=== PATIENT | male | born 1975 | race Caucasian/White ===

== ENCOUNTER 2019-11-03 19:56 | Emergency (ER) | payer OTHER ==
[~2019-11-03] VITALS: Ht 175.3 cm; Wt 92.8 kg
--- NOTE | 2019-11-03 20:09 | NUR ---
PT TO [facility], WAIT TIME EXPLAINED. Addendum: 11/03/19 at 2340 by RIA Patient/Caregiver given discharge instructions and they have confirmed that they understand the instructions. Patient ambulatory with steady gait.
--- NOTE | 2019-11-03 20:25 | NUR ---
THIS IS A 43Y M THAT COMES IN W/ C/O EXHAUSTION. PT STS HE IS VERY TIRED AND HAS NOT BEEN SLEEPING OR EATING DUE TO BEING HOMELESS. PT DENIES MEDICAL COMPLAINTS OTHER THAN STATING HE IS VERY TIRED AND HUNGRY. PT CONNECTED TO MONITORING. LILLY WELSH. CALL LIGHT IN REACH
--- NOTE | 2019-11-03 22:05 | NUR ---
LAB AT BEDSIDE
--- NOTE | 2019-11-03 22:17 | NUR ---
PT REMAINS RESTING ON [facility]. S
[2019-11-03 22:24] LABS: ALANINE AMINOTRANSFERASE 44 U/L (12-78); ALBUMIN 2.3 g/dL (3.4-5.0); ANION GAP 7 mmol/L (5-15); CALCIUM 7.8 mg/dL (8.5-10.1); CHLORIDE 113 mmol/L (98-107)
[2019-11-03 22:29] LABS: ALKALINE PHOSPHATASE 68 U/L (45-117); BILIRUBIN,TOTAL 1.8 mg/dL (0.2-1.0); TOTAL PROTEIN 6.4 g/dL (6.4-8.2); TROPONIN I < 0.015 ng/mL (0.000-0.045)
[2019-11-03 22:42] LABS: MEAN CORPUSCULAR HEMOGLOBIN 30.4 pg (27.5-34.5); MEAN CORPUSCULAR HGB CONC 34.1 g/dL (33.2-36.2); MEAN CORPUSCULAR VOLUME 89.1 fL (81-97); MEAN PLATELET VOLUME 9.4 fL (7.4-10.4); RED BLOOD COUNT 4.08 x10^6/uL (4.38-5.82); RED CELL DISTRIBUTION WIDTH 17.8 % (9.4-14.8)
[2019-11-03 22:45] LABS: PLATELET COUNT 34 x10^3/uL (130-400)
[2019-11-03 22:48] LABS: FREE T4 (FREE THYROXINE) 1.04 ng/dL (0.76-1.46)
[2019-11-03 22:50] LABS: BASOS% (MANUAL) 3 % (0-1); EOS#(MANUAL) 0.64 x10^3/uL (0.0-0.4); EOS% (MANUAL) 20 % (1-7); LYMPH#(MANUAL) 0.67 x10^3/uL (1-3.4); LYMPHS% (MANUAL) 21 % (22-44); MD YES; MONOS#(MANUAL) 0.19 x10^3/uL (0.3-2.7); MONOS% (MANUAL) 6 % (2-9); REACTIVE LYMPHS # (MANUAL) 0.06 x10^3/uL (0-0); REACTIVE LYMPHS % (MANUAL) 2 % (0-0); SEG#(MANUAL) 1.54 x10^3/uL (1.8-6.8); SEGS% (MANUAL) 48 % (42-75)
[2019-11-03 22:51] LABS: ANISOCYTOSIS 1+; OVALOCYTES 1+; POLYCHROMASIA 1+
[2019-11-03 22:52] LABS: MICROCYTOSIS 1+
[2019-11-03 22:54] LABS: <PLATELET ESTIMATE> DECREASED
[2019-11-03 23:15] VITALS: BP 92/50
== END 2019-11-03 23:42 | disposition home or self-care (01) ==
LOC: ED 20:15
DX: B18.2 Chronic viral hepatitis C (principal); D69.3 Immune thrombocytopenic purpura; R53.1 Weakness
CPT/HCPCS: 36415; 80053; 83690; 84439; 84443; 84484; 85025; 93005; 99284

== ENCOUNTER 2019-11-11 12:16 | Inpatient (IN) | payer SELFPAY ==
[~2019-11-11] VITALS: Ht 175.3 cm; Wt 83.0 kg
[2019-11-11 13:02] LABS: ALBUMIN 2.6 g/dL (3.4-5.0); ANION GAP 6 mmol/L (5-15); CALCIUM 7.7 mg/dL (8.5-10.1); CHLORIDE 107 mmol/L (98-107); CREATININE 0.79 mg/dL (0.7-1.3)
[2019-11-11 13:13] LABS: MEAN CORPUSCULAR HEMOGLOBIN 30.1 pg (27.5-34.5); MEAN CORPUSCULAR HGB CONC 33.9 g/dL (33.2-36.2); MEAN CORPUSCULAR VOLUME 88.9 fL (81-97); PLATELET COUNT 68 x10^3/uL (130-400); RED BLOOD COUNT 4.46 x10^6/uL (4.38-5.82); RED CELL DISTRIBUTION WIDTH 17.3 % (9.4-14.8)
[2019-11-11] MEDS ORDERED: IBUPROFEN 200 MG TABLET PO ONE (13:30)
--- NOTE | 2019-11-11 13:30 | NUR ---
ASSUMED CARE OF PT AT THIS TIME FROM LOBBY VIA WHEELCHAIR, ABLE TO STAND AND TRANSFER SELF TO [facility]. 43 Y/O M PRESENTS STATING "I'M HOMELESS SO I SLEEP ANYWHERE I CAN, I THINK I GOT MY LEG CUT WHEN I WAS SLEEPING, FOR LAST 3 WEEKS BOTH MY LEGS ARE SWELLING REALLY BAD, THE RIGHT IS WORSE, I HAVE HEP C AND LIVER CIRRHOSIS SO MY STOMACH IS ALL SWOLLEN TOO, I TOOK 3-4 BABY ASPIRIN THIS MORNING TO HELP WITH THE PAIN, I JUST WANT ANTIBITICS, I THINK I'M SICK, I HAVE HEADACHE AND FEVERS FOR LAST WEEK. I'VE BEEN SMOKING POT TO HELP." ASSESSMENT COMPLETED. CONT PULSE OX, BP MONITORS APPLIED. VSS. CALL LIGHT IN REACH. FALL PRECAUTIONS IN PLACE. SIDE RAILS UPX2. DR. GARCIA AT BEDSIDE TO EVALUATE PT, AWAITING ORDERS. COOLING MEASURES IN PLACE FOR ELEVATED TEMP.
[2019-11-11 13:39] LABS: MD YES
[2019-11-11] MEDS ORDERED: IBUPROFEN 200 MG TABLET ONE (13:41)
[2019-11-11 13:43] LABS: BASOS#(MANUAL) 0.04 x10^3/uL (0-0.1); BASOS% (MANUAL) 1 % (0-1); EOS#(MANUAL) 0.17 x10^3/uL (0.0-0.4); EOS% (MANUAL) 4 % (1-7); LYMPH#(MANUAL) 0.25 x10^3/uL (1-3.4); LYMPHS% (MANUAL) 6 % (22-44); MONOS#(MANUAL) 0.34 x10^3/uL (0.3-2.7); MONOS% (MANUAL) 8 % (2-9); SEGS% (MANUAL) 81 % (42-75)
[2019-11-11 13:44] LABS: <PLATELET ESTIMATE> DECREASED; <PLT MORPHOLOGY> NORMAL PLT MORPH; ANISOCYTOSIS 1+; OVALOCYTES 1+; POLYCHROMASIA 1+
--- NOTE | 2019-11-11 13:50 | NUR ---
PT MEDICATED NOTED PER ORDER FOR ELEVATED TEMP, HOOVER AND LEG PAIN. PT REPORTS "I CAN'T TAKE TYLENOL BECAUSE OG MY CIRRHOSIS." RESTING COMFORTABLY. VSS. CALL LIGHT IN REACH. FALL PRECAUTIONS IN PLACE. US AT BEDSIDE
--- NOTE | 2019-11-11 14:08 | NUR ---
PT UP FOR RECHECK
--- NOTE | 2019-11-11 14:22 | NUR ---
PT RESTING COMFORTABLY, DOZING INTERMITTENTLY. DENIES NEED TO USE RESTROOM. REPORTS PAIN IMPROVING TO 8/10. VSS. AWAITING RECHECK. FALL PRECAUTIONS IN PLACE. SIDE RAILS UPX2.
--- NOTE | 2019-11-11 15:00 | NUR ---
BEDSIDE REPORT AND TRANSFER OF CARE TO [facility] AT THIS TIME.
--- NOTE | 2019-11-11 15:04 | NUR ---
ASSUMED CARE OF PATIENT. BEDSIDE REPORT DONE.
[2019-11-11] MEDS ORDERED: ACETAMINOPHEN 325 MG TABLET ONE (15:27)
--- NOTE | 2019-11-11 15:29 | NUR ---
SPOKE WITH DR GARCIA. WANTS TYLENOL GIVEN.
[2019-11-11] MEDS ORDERED: AMPICILLIN/SULBACTAM 3 GM in SODIUM CHLORIDE 0.9% 100 ML IV ONE (15:30)
[2019-11-11] MEDS ORDERED: VANCOMYCIN PER PHARMACY MC PRN ×2 (15:30→18:00)
[2019-11-11] MEDS ORDERED: ACETAMINOPHEN 325 MG TABLET PO ONE (15:30)
--- NOTE | 2019-11-11 15:55 | NUR ---
both blood cultlures drawn before abx given
[2019-11-11] MEDS ORDERED: VANCOMYCIN 1,900 MG in SODIUM CHLORIDE 0.9% 250 ML IV ONE (16:00)
--- NOTE | 2019-11-11 16:02 | NUR ---
HOSPITALIST IN ROOM
[2019-11-11] MEDS ORDERED: TRAZODONE 50MG TABLET PO PRN (16:30)
[2019-11-11] MEDS ORDERED: GUAIFENESIN/DM 200-20MG, 10ML UDC PO PRN (16:30)
[2019-11-11] MEDS ORDERED: hydrALAzine 20 MG/ML, 1ML IVPush PRN (16:30)
[2019-11-11] MEDS ORDERED: ONDANSETRON 2MG/ML, 2ML IVPush PRN (16:30)
[2019-11-11] MEDS ORDERED: ONDANSETRON ODT 4 MG PO PRN (16:30)
[2019-11-11] MEDS ORDERED: GABAPENTIN 300 MG CAPSULE PO PRN (16:30)
[2019-11-11] MEDS ORDERED: HYDROmorphone 2 MG/ML, 1ML IVPush PRN (16:30)
[2019-11-11] MEDS: NICOTINE 7 MG/24 HR PATCH.TD24 TD SCH (16:30)
[2019-11-11] MEDS ORDERED: LABETALOL 5MG/ML, 20ML IVPush PRN (16:30)
--- NOTE | 2019-11-11 17:02 | NUR ---
PT RESTING IN ROOM. NO ACUTE DISTRESS NOTED. CALL LIGHT IN PLACE. WILL CONTINUE TO MONITOR.
[2019-11-11] MEDS: ENOXAPARIN 40 MG/0.4 ML SQ SCH (18:06)
[2019-11-11 18:13] LABS: FREE T4 (FREE THYROXINE) 1.03 ng/dL (0.76-1.46)
[2019-11-11] MEDS ORDERED: PHARMACOKINETIC CONSULTATION MC ONE (18:30)
[2019-11-11] MEDS ORDERED: PHARMACOKINETIC MONITORING MC PRN (18:30)
[2019-11-11] MEDS ORDERED: OMNIPAQUE 350 MG/ML, 150 ML BOTTLE ONE (19:37)
[2019-11-11 19:55] VITALS: BP 118/73
[2019-11-11] MEDS ORDERED: FLU VACC QS2019-20 36MOS UP/PF 0.5 ML IM-VACC ONE (20:30)
[2019-11-12] MEDS: AMPICILLIN/SULBACTAM 3 GM in SODIUM CHLORIDE 0.9% 100 ML IV SCH ×4 (00:02→23:52)
[2019-11-12 00:07] VITALS: BP 160/88
[2019-11-12 03:35] LABS: CULTURE INDICATED? NO; MICROSCOPIC AUTO
[2019-11-12] MEDS: IBUPROFEN 600 MG TABLET PO PRN ×2 (04:10→16:10)
[2019-11-12] MEDS: VANCOMYCIN 1,500 MG in SODIUM CHLORIDE 0.9% 250 ML IV SCH ×2 (05:23→18:15)
[2019-11-12 05:44] LABS: MEAN CORPUSCULAR HEMOGLOBIN 30.2 pg (27.5-34.5); MEAN CORPUSCULAR HGB CONC 34.1 g/dL (33.2-36.2); MEAN CORPUSCULAR VOLUME 88.4 fL (81-97); RED BLOOD COUNT 4.18 x10^6/uL (4.38-5.82); RED CELL DISTRIBUTION WIDTH 17.5 % (9.4-14.8)
[2019-11-12 06:56] LABS: BASOPHILS # (AUTO) 0.01 x10^3/uL (0-0.1); BASOPHILS % (AUTO) 1 % (0-1); EOSINOPHILS # (AUTO) 0.09 x10^3/uL (0-0.4); EOSINOPHILS % (AUTO) 3 % (1-7); LYMPHOCYTES # (AUTO) 0.18 x10^3/uL (1-3.4); LYMPHOCYTES % (AUTO) 6 % (22-44); MD SCAN; MONOCYTES # (AUTO) 0.44 x10^3/uL (0.2-0.8); MONOCYTES % (AUTO) 15 % (2-9); NEUTROPHILS # (AUTO) 2.16 x10^3/uL (1.8-6.8); NEUTROPHILS % (AUTO) 75 % (42-75); PLATELET COUNT 64 x10^3/uL (130-400)
[2019-11-12 07:51] VITALS: BP 132/78
[2019-11-12 12:16] VITALS: BP 118/74
[2019-11-12 16:09] VITALS: BP 146/74
[2019-11-12] MEDS: NICOTINE 7 MG/24 HR PATCH.TD24 TD SCH (16:12)
[2019-11-12] MEDS: ENOXAPARIN 40 MG/0.4 ML SQ SCH (18:14)
[2019-11-12 19:25] VITALS: BP 124/74
[2019-11-13 02:13] VITALS: BP 123/81
[2019-11-13] MEDS: VANCOMYCIN 1,500 MG in SODIUM CHLORIDE 0.9% 250 ML IV SCH (05:38)
[2019-11-13 06:46] VITALS: BP 119/74
[2019-11-13] MEDS: AMPICILLIN/SULBACTAM 3 GM in SODIUM CHLORIDE 0.9% 100 ML IV SCH ×3 (07:45→23:59)
[2019-11-13 08:54] LABS: ANION GAP 6 mmol/L (5-15); CALCIUM 7.4 mg/dL (8.5-10.1); CHLORIDE 110 mmol/L (98-107); CREATININE 0.65 mg/dL (0.7-1.3)
[2019-11-13 08:58] LABS: MEAN CORPUSCULAR HEMOGLOBIN 30.3 pg (27.5-34.5); MEAN CORPUSCULAR HGB CONC 33.9 g/dL (33.2-36.2); MEAN CORPUSCULAR VOLUME 89.5 fL (81-97); MEAN PLATELET VOLUME 7.8 fL (7.4-10.4); PLATELET COUNT 50 x10^3/uL (130-400); RED BLOOD COUNT 4.46 x10^6/uL (4.38-5.82); RED CELL DISTRIBUTION WIDTH 17.4 % (9.4-14.8)
[2019-11-13 09:45] LABS: BASOPHILS # (AUTO) 0.01 x10^3/uL (0-0.1); BASOPHILS % (AUTO) 1 % (0-1); EOSINOPHILS # (AUTO) 0.28 x10^3/uL (0-0.4); EOSINOPHILS % (AUTO) 10 % (1-7); LYMPHOCYTES # (AUTO) 0.43 x10^3/uL (1-3.4); LYMPHOCYTES % (AUTO) 16 % (22-44); MD SCAN; MONOCYTES # (AUTO) 0.36 x10^3/uL (0.2-0.8); MONOCYTES % (AUTO) 13 % (2-9); NEUTROPHILS # (AUTO) 1.62 x10^3/uL (1.8-6.8); NEUTROPHILS % (AUTO) 60 % (42-75)
[2019-11-13] MEDS ORDERED: IBUPROFEN 600 MG TABLET PO PRN (10:30)
[2019-11-13 13:55] VITALS: BP 138/88
[2019-11-13] MEDS: ACETAMINOPHEN 325 MG TABLET PO PRN (14:09)
[2019-11-13] MEDS: ENOXAPARIN 40 MG/0.4 ML SQ SCH (16:04)
[2019-11-13] MEDS: NICOTINE 7 MG/24 HR PATCH.TD24 TD SCH (16:04)
[2019-11-13 16:28] LABS: INTERNATIONAL NORMALIZED RATIO 1.32 (0.93-1.1)
[2019-11-13 19:10] VITALS: BP 126/74
[2019-11-14 00:32] VITALS: BP 106/67
[2019-11-14 05:02] LABS: MEAN CORPUSCULAR HEMOGLOBIN 30.4 pg (27.5-34.5); MEAN CORPUSCULAR HGB CONC 34.3 g/dL (33.2-36.2); MEAN CORPUSCULAR VOLUME 88.8 fL (81-97); RED BLOOD COUNT 4.04 x10^6/uL (4.38-5.82); RED CELL DISTRIBUTION WIDTH 17.3 % (9.4-14.8)
[2019-11-14 05:10] LABS: ANION GAP 6 mmol/L (5-15); CALCIUM 7.1 mg/dL (8.5-10.1); CHLORIDE 110 mmol/L (98-107); CREATININE 0.63 mg/dL (0.7-1.3)
[2019-11-14 05:20] LABS: BASOPHILS # (AUTO) 0.04 x10^3/uL (0-0.1); BASOPHILS % (AUTO) 2 % (0-1); EOSINOPHILS # (AUTO) 0.24 x10^3/uL (0-0.4); EOSINOPHILS % (AUTO) 12 % (1-7); LYMPHOCYTES # (AUTO) 0.47 x10^3/uL (1-3.4); LYMPHOCYTES % (AUTO) 23 % (22-44); MD SCAN; MONOCYTES # (AUTO) 0.28 x10^3/uL (0.2-0.8); MONOCYTES % (AUTO) 13 % (2-9); NEUTROPHILS # (AUTO) 1.05 x10^3/uL (1.8-6.8); NEUTROPHILS % (AUTO) 51 % (42-75)
[2019-11-14 05:25] LABS: PLATELET COUNT 45 x10^3/uL (130-400)
[2019-11-14 07:05] VITALS: BP 130/87
[2019-11-14 08:12] LABS: % IRON SATURATION 20 % (20-55); IRON LEVEL 35 mcg/dL (65-175); TOTAL IRON BINDING CAPACITY 173 mcg/dL (250-450)
[2019-11-14] MEDS: CARVEDILOL 3.125 MG TABLET PO SCH ×2 (08:23→17:06)
[2019-11-14] MEDS: AMPICILLIN/SULBACTAM 3 GM in SODIUM CHLORIDE 0.9% 100 ML IV SCH ×3 (08:23→23:58)
[2019-11-14] MEDS: FUROSEMIDE 20 MG TABLET PO SCH (11:37)
[2019-11-14] MEDS: SPIRONOLACTONE 25 MG TABLET PO SCH (11:38)
[2019-11-14 11:40] VITALS: BP 126/79
[2019-11-14 14:01] VITALS: BP 156/99
[2019-11-14] MEDS: NICOTINE 7 MG/24 HR PATCH.TD24 TD SCH (14:17)
[2019-11-14] MEDS: ACETAMINOPHEN 325 MG TABLET PO PRN ×2 (14:39→20:26)
[2019-11-14 17:04] VITALS: BP 128/81
[2019-11-14] MEDS: ENOXAPARIN 40 MG/0.4 ML SQ SCH (17:06)
[2019-11-14] MEDS ORDERED: VANCOMYCIN PER PHARMACY MC PRN (17:30)
[2019-11-14] MEDS ORDERED: PHARMACOKINETIC MONITORING MC PRN (18:30)
[2019-11-14] MEDS ORDERED: PHARMACOKINETIC CONSULTATION MC ONE (18:30)
[2019-11-14 19:37] VITALS: BP 113/72
[2019-11-14] MEDS: VANCOMYCIN 2,000 MG in SODIUM CHLORIDE 0.9% 500 ML IV SCH (19:38)
[2019-11-14] MEDS: CALCIUM/VITAMIN D3 250-125 TABLET PO SCH (19:38)
[2019-11-15] MEDS: ZOLPIDEM 5MG TABLET PO PRN ×2 (00:09→22:04)
[2019-11-15 01:11] VITALS: BP 120/81
[2019-11-15 05:38] LABS: MEAN CORPUSCULAR HEMOGLOBIN 30.1 pg (27.5-34.5); MEAN CORPUSCULAR VOLUME 88.7 fL (81-97); PLATELET COUNT 52 x10^3/uL (130-400); RED BLOOD COUNT 4.08 x10^6/uL (4.38-5.82)
[2019-11-15 06:09] LABS: BASOPHILS # (AUTO) 0.03 x10^3/uL (0-0.1); BASOPHILS % (AUTO) 1 % (0-1); EOSINOPHILS # (AUTO) 0.32 x10^3/uL (0-0.4); EOSINOPHILS % (AUTO) 8 % (1-7); LYMPHOCYTES # (AUTO) 0.69 x10^3/uL (1-3.4); LYMPHOCYTES % (AUTO) 18 % (22-44); MD SCAN; MONOCYTES # (AUTO) 0.52 x10^3/uL (0.2-0.8); MONOCYTES % (AUTO) 14 % (2-9); NEUTROPHILS # (AUTO) 2.27 x10^3/uL (1.8-6.8); NEUTROPHILS % (AUTO) 59 % (42-75)
[2019-11-15] MEDS: CARVEDILOL 3.125 MG TABLET PO SCH ×2 (06:15→18:15)
[2019-11-15 06:48] VITALS: BP 129/80
[2019-11-15] MEDS: CALCIUM/VITAMIN D3 250-125 TABLET PO SCH ×2 (07:42→19:39)
[2019-11-15] MEDS: SPIRONOLACTONE 25 MG TABLET PO SCH (07:42)
[2019-11-15] MEDS: VANCOMYCIN 2,000 MG in SODIUM CHLORIDE 0.9% 500 ML IV SCH ×2 (07:42→19:39)
[2019-11-15] MEDS: FUROSEMIDE 20 MG TABLET PO SCH (07:42)
[2019-11-15] MEDS: AMPICILLIN/SULBACTAM 3 GM in SODIUM CHLORIDE 0.9% 100 ML IV SCH ×2 (09:20→18:14)
[2019-11-15 12:38] VITALS: BP 113/76
[2019-11-15] MEDS: ENOXAPARIN 40 MG/0.4 ML SQ SCH (18:14)
[2019-11-15 19:24] VITALS: BP 112/68
[2019-11-16 01:47] VITALS: BP 120/79
[2019-11-16] MEDS: AMPICILLIN/SULBACTAM 3 GM in SODIUM CHLORIDE 0.9% 100 ML IV SCH ×2 (01:57→10:56)
[2019-11-16 05:52] VITALS: BP 120/68
[2019-11-16] MEDS: CARVEDILOL 3.125 MG TABLET PO SCH ×2 (05:53→17:16)
[2019-11-16 06:40] VITALS: BP 107/70
[2019-11-16] MEDS ORDERED: BISACODYL 10 MG SUPP PR SCH (07:30)
[2019-11-16] MEDS ORDERED: MAGNESIUM CITRATE 300ML ORAL SOL PO ONE (07:30)
[2019-11-16] MEDS: VANCOMYCIN 2,000 MG in SODIUM CHLORIDE 0.9% 500 ML IV SCH (08:45)
[2019-11-16] MEDS: CALCIUM/VITAMIN D3 250-125 TABLET PO SCH ×2 (08:45→20:13)
[2019-11-16] MEDS: FUROSEMIDE 20 MG TABLET PO SCH (08:45)
[2019-11-16] MEDS: SPIRONOLACTONE 25 MG TABLET PO SCH (08:45)
[2019-11-16] MEDS: CEFTRIAXONE PMX 2GM/50ML 50 ML IV SCH (14:13)
[2019-11-16 15:00] VITALS: BP 114/79
[2019-11-16] MEDS ORDERED: VANCOMYCIN 1,700 MG in SODIUM CHLORIDE 0.9% 250 ML IV SCH (17:00)
[2019-11-16] MEDS: ENOXAPARIN 40 MG/0.4 ML SQ SCH (17:16)
[2019-11-16 19:42] VITALS: BP 119/75
[2019-11-16] MEDS: SULFAMETH./TRIMETHOPRIM DS 800MG/160MG TABLET PO SCH (20:12)
[2019-11-16] MEDS: SENNA/DOCUSATE TABLET PO SCH ×2 (20:13→21:00)
[2019-11-16] MEDS: ZOLPIDEM 5MG TABLET PO PRN (23:42)
[2019-11-17 00:21] VITALS: BP 111/76
[2019-11-17] MEDS: CARVEDILOL 3.125 MG TABLET PO SCH ×2 (05:24→17:07)
[2019-11-17 06:48] LABS: ANION GAP 6 mmol/L (5-15); CALCIUM 7.6 mg/dL (8.5-10.1); CHLORIDE 110 mmol/L (98-107); CREATININE 0.58 mg/dL (0.7-1.3)
[2019-11-17 07:05] VITALS: BP 123/84
[2019-11-17 08:28] LABS: CLOSTRIDIUM DIFFICILE ANTIGEN NEGATIVE; CLOSTRIDIUM DIFFICILE TOXIN NEGATIVE (Negative)
[2019-11-17] MEDS: SPIRONOLACTONE 25 MG TABLET PO SCH (08:56)
[2019-11-17] MEDS: SULFAMETH./TRIMETHOPRIM DS 800MG/160MG TABLET PO SCH ×2 (08:56→20:53)
[2019-11-17] MEDS: FUROSEMIDE 20 MG TABLET PO SCH (08:56)
[2019-11-17] MEDS: CALCIUM/VITAMIN D3 250-125 TABLET PO SCH ×2 (08:56→20:53)
[2019-11-17] MEDS: CEFTRIAXONE PMX 2GM/50ML 50 ML IV SCH (13:00)
[2019-11-17 13:14] VITALS: BP 103/63
[2019-11-17] MEDS: ENOXAPARIN 40 MG/0.4 ML SQ SCH (17:07)
[2019-11-17 19:29] VITALS: BP 109/74
[2019-11-17] MEDS: SENNA/DOCUSATE TABLET PO SCH (20:53)
[2019-11-17] MEDS: ZOLPIDEM 5MG TABLET PO PRN (22:43)
[2019-11-18 00:06] VITALS: BP 103/68
[2019-11-18 05:28] VITALS: BP 122/78
[2019-11-18] MEDS: CARVEDILOL 3.125 MG TABLET PO SCH ×2 (05:29→20:29)
[2019-11-18 07:37] VITALS: BP 118/76
[2019-11-18] MEDS: CALCIUM/VITAMIN D3 250-125 TABLET PO SCH ×2 (08:55→20:29)
[2019-11-18] MEDS: SPIRONOLACTONE 25 MG TABLET PO SCH (08:55)
[2019-11-18] MEDS: FUROSEMIDE 20 MG TABLET PO SCH (08:55)
[2019-11-18] MEDS: SULFAMETH./TRIMETHOPRIM DS 800MG/160MG TABLET PO SCH ×2 (08:55→20:29)
[2019-11-18] MEDS: CEFTRIAXONE PMX 2GM/50ML 50 ML IV SCH (12:51)
[2019-11-18] MEDS ORDERED: SENNA/DOCUSATE TABLET PO PRN (13:00)
[2019-11-18 13:07] VITALS: BP 107/68
[2019-11-18 18:46] VITALS: BP 124/76
[2019-11-18] MEDS: ENOXAPARIN 40 MG/0.4 ML SQ SCH (20:36)
[2019-11-18] MEDS: ZOLPIDEM 5MG TABLET PO PRN (22:52)
[2019-11-19 01:36] VITALS: BP 109/70
[2019-11-19 05:39] VITALS: BP 105/64
[2019-11-19] MEDS: CARVEDILOL 3.125 MG TABLET PO SCH ×2 (05:41→17:09)
[2019-11-19 07:11] VITALS: BP 102/62
[2019-11-19] MEDS: SULFAMETH./TRIMETHOPRIM DS 800MG/160MG TABLET PO SCH ×2 (09:14→20:43)
[2019-11-19] MEDS: SPIRONOLACTONE 25 MG TABLET PO SCH (09:14)
[2019-11-19] MEDS: FUROSEMIDE 20 MG TABLET PO SCH (09:14)
[2019-11-19] MEDS: CALCIUM/VITAMIN D3 250-125 TABLET PO SCH ×2 (09:14→20:43)
[2019-11-19] MEDS: CEFTRIAXONE PMX 2GM/50ML 50 ML IV SCH (13:02)
[2019-11-19 13:18] VITALS: BP 114/72
[2019-11-19 19:43] VITALS: BP 113/69
[2019-11-19] MEDS: ZOLPIDEM 5MG TABLET PO PRN (20:43)
[2019-11-19] MEDS: ENOXAPARIN 40 MG/0.4 ML SQ SCH (20:43)
[2019-11-20 02:58] VITALS: BP 104/64
[2019-11-20] MEDS: CARVEDILOL 3.125 MG TABLET PO SCH ×2 (06:05→17:17)
[2019-11-20 06:49] VITALS: BP 107/70
[2019-11-20 08:19] VITALS: BP 102/71
[2019-11-20] MEDS: CALCIUM/VITAMIN D3 250-125 TABLET PO SCH ×2 (09:02→20:14)
[2019-11-20] MEDS: SULFAMETH./TRIMETHOPRIM DS 800MG/160MG TABLET PO SCH ×2 (09:03→20:14)
[2019-11-20] MEDS: FUROSEMIDE 20 MG TABLET PO SCH (09:03)
[2019-11-20] MEDS: SPIRONOLACTONE 25 MG TABLET PO SCH (09:04)
[2019-11-20 12:44] VITALS: BP 114/72
[2019-11-20] MEDS: CEFTRIAXONE PMX 2GM/50ML 50 ML IV SCH (13:26)
[2019-11-20 19:55] VITALS: BP 103/69
[2019-11-20] MEDS: ZOLPIDEM 5MG TABLET PO PRN (20:15)
[2019-11-20] MEDS: ENOXAPARIN 40 MG/0.4 ML SQ SCH (20:15)
[2019-11-21 01:42] VITALS: BP 107/77
[2019-11-21] MEDS: CARVEDILOL 3.125 MG TABLET PO SCH ×2 (05:47→18:31)
[2019-11-21 07:55] VITALS: BP 104/68
[2019-11-21] MEDS: CALCIUM/VITAMIN D3 250-125 TABLET PO SCH ×2 (08:57→20:36)
[2019-11-21] MEDS: SPIRONOLACTONE 25 MG TABLET PO SCH (08:59)
[2019-11-21] MEDS: FUROSEMIDE 20 MG TABLET PO SCH (09:00)
[2019-11-21] MEDS: SULFAMETH./TRIMETHOPRIM DS 800MG/160MG TABLET PO SCH ×2 (09:01→20:36)
[2019-11-21] MEDS ORDERED: LOPERAMIDE 2 MG CAPSULE PO PRN (09:30)
[2019-11-21] MEDS: HEMORRHOIDAL SUPP.RECT PR SCH ×2 (09:33→21:18)
[2019-11-21] MEDS: CEFTRIAXONE PMX 2GM/50ML 50 ML IV SCH (12:10)
[2019-11-21 13:31] VITALS: BP 105/63
[2019-11-21 19:44] VITALS: BP 100/61
[2019-11-21] MEDS: ZOLPIDEM 5MG TABLET PO PRN (20:36)
[2019-11-21] MEDS: ENOXAPARIN 40 MG/0.4 ML SQ SCH (20:37)
[2019-11-22 02:52] VITALS: BP 102/66
[2019-11-22] MEDS: CARVEDILOL 3.125 MG TABLET PO SCH ×2 (05:22→18:33)
[2019-11-22 07:30] VITALS: BP 102/64
[2019-11-22] MEDS: HEMORRHOIDAL SUPP.RECT PR SCH (08:55)
[2019-11-22] MEDS: SPIRONOLACTONE 25 MG TABLET PO SCH (08:57)
[2019-11-22] MEDS: CALCIUM/VITAMIN D3 250-125 TABLET PO SCH ×2 (08:57→19:45)
[2019-11-22] MEDS: FUROSEMIDE 20 MG TABLET PO SCH (08:57)
[2019-11-22] MEDS: SULFAMETH./TRIMETHOPRIM DS 800MG/160MG TABLET PO SCH ×2 (08:57→19:46)
[2019-11-22] MEDS: HYDROCORTISONE 25 MG SUPP PR SCH ×2 (12:21→21:00)
[2019-11-22] MEDS: CEFTRIAXONE PMX 2GM/50ML 50 ML IV SCH (13:01)
[2019-11-22 13:41] VITALS: BP 110/72
[2019-11-22] MEDS: ENOXAPARIN 40 MG/0.4 ML SQ SCH (19:45)
[2019-11-22] MEDS: ZOLPIDEM 5MG TABLET PO PRN (19:46)
[2019-11-22 20:46] VITALS: BP 101/64
[2019-11-23 03:00] VITALS: BP 113/72
[2019-11-23] MEDS: CARVEDILOL 3.125 MG TABLET PO SCH ×2 (06:00→17:15)
[2019-11-23 07:17] VITALS: BP 104/69
[2019-11-23] MEDS: CALCIUM/VITAMIN D3 250-125 TABLET PO SCH ×2 (09:21→21:03)
[2019-11-23] MEDS: SULFAMETH./TRIMETHOPRIM DS 800MG/160MG TABLET PO SCH ×2 (09:21→21:03)
[2019-11-23] MEDS: HYDROCORTISONE 25 MG SUPP PR SCH ×2 (09:21→21:03)
[2019-11-23] MEDS: FUROSEMIDE 20 MG TABLET PO SCH (09:21)
[2019-11-23] MEDS: SPIRONOLACTONE 25 MG TABLET PO SCH (09:21)
[2019-11-23 12:32] VITALS: BP 107/67
[2019-11-23] MEDS: CEFTRIAXONE PMX 2GM/50ML 50 ML IV SCH (12:34)
[2019-11-23 20:21] VITALS: BP 122/76
[2019-11-23] MEDS: ENOXAPARIN 40 MG/0.4 ML SQ SCH (21:03)
[2019-11-23] MEDS: ZOLPIDEM 5MG TABLET PO PRN (21:08)
[2019-11-24 00:29] VITALS: BP 110/71
[2019-11-24] MEDS: CARVEDILOL 3.125 MG TABLET PO SCH (05:09)
[2019-11-24 06:04] LABS: ANION GAP 6 mmol/L (5-15); CALCIUM 7.8 mg/dL (8.5-10.1); CHLORIDE 110 mmol/L (98-107); CREATININE 0.76 mg/dL (0.7-1.3)
[2019-11-24] MEDS ORDERED: HYDROCORTISONE 25 MG SUPP PR PRN (07:30)
[2019-11-24 08:48] VITALS: BP 100/68
[2019-11-24] MEDS: FUROSEMIDE 20 MG TABLET PO SCH (08:49)
[2019-11-24] MEDS: SPIRONOLACTONE 25 MG TABLET PO SCH (08:49)
[2019-11-24] MEDS: CALCIUM/VITAMIN D3 250-125 TABLET PO SCH (08:49)
[2019-11-24] MEDS: SULFAMETH./TRIMETHOPRIM DS 800MG/160MG TABLET PO SCH (08:50)
[2019-11-24] MEDS ORDERED: CEFTRIAXONE PMX 2GM/50ML 50 ML IV SCH (09:00)
[2019-11-24] MEDS ORDERED: CALC1TAB68 PO (09:08)
[2019-11-24] MEDS ORDERED: SPIR25TA PO (09:08)
[2019-11-24] MEDS ORDERED: FURO20TA3 PO (09:08)
[2019-11-24] MEDS ORDERED: HYDR25SU3 PR (09:08)
[2019-11-24] MEDS ORDERED: CARV3.1212 PO (09:08)
== END 2019-11-24 13:35 | disposition home or self-care (01) | DRG 872 ==
LOC: ED 14:19 → EDIP 15:29 → 3N 17:48
PROVIDERS: ADMIT Internal Medicine Infectious Disease; ATTEND Internal Medicine
PROC: 02HV33Z Insertion of Infusion Device into Superior Vena Cava, Percutaneous Approach (ICD-10-PCS; principal; 2019-11-17)
PROC: B5181ZA Fluoroscopy of Superior Vena Cava using Low Osmolar Contrast, Guidance (ICD-10-PCS; 2019-11-17)
PROC: B548ZZA Ultrasonography of Superior Vena Cava, Guidance (ICD-10-PCS; 2019-11-17)
DX: A41.9 Sepsis, unspecified organism (principal); D61.818 Other pancytopenia; E44.1 Mild protein-calorie malnutrition; E87.1 Hypo-osmolality and hyponatremia; L03.115 Cellulitis of right lower limb; R18.8 Other ascites; B19.20 Unspecified viral hepatitis C without hepatic coma; E03.9 Hypothyroidism, unspecified; Z68.27 Body mass index [BMI] 27.0-27.9, adult; E66.9 Obesity, unspecified; E83.42 Hypomagnesemia; E83.51 Hypocalcemia; F12.10 Cannabis abuse, uncomplicated; F17.210 Nicotine dependence, cigarettes, uncomplicated; G47.00 Insomnia, unspecified; I10 Essential (primary) hypertension; K59.00 Constipation, unspecified; K64.4 Residual hemorrhoidal skin tags; K74.60 Unspecified cirrhosis of liver; Z59.0 Homelessness; Z88.8 Allergy status to other drugs, medicaments and biological substances
CPT/HCPCS: 36415; 36573; 71046; 76700; 80048; 80202; 81001; 82040; 82330; 82565; 83540; 83550; 83605; 83735; 84439; 84443; 84481; 84520; 85025; 85610; 87040; 87070; 87077; 87147; 87181; 87186; 87205; 87324; 90686; 99285; G0378; J0295; J0696; J1650; J3370; Q9967; C1751; J7040; J7050

== ENCOUNTER 2020-09-03 02:27 | Emergency (ER) | payer MEDICAID ==
[~2020-09-03] VITALS: Ht 175.3 cm; Wt 78.0 kg
[~2020-09-03 02:27] MED LIST: CALC1TAB68 PO; CARV3.1212 PO; FURO20TA3 PO; HYDR25SU3 PR; LACT20SO13 PO; PANT40TA6 PO; PROP10TA16 PO; RIFA550T4 PO; SPIR25TA PO; SPIR50TA PO
--- NOTE | 2020-09-03 02:39 | NUR ---
PT BIB EMS FROM [facility] FOR GENERALIZED PAIN "ALL OVER", CHEST PAIN, AND HOOVER X 2 DAYS. PT ALTERED AND AAO X2. PT DENIES ETOH OR DRUG USE OTHER THAN MARIJUANA. HEAVEN ALVARADO, AT FOR PT HISTORY AND ASSESSMENT. PT ATTACHED TO VS AND CARDIAC MONITORS. VSS AT THIS TIME. PT EDUCATED ON ER PROCESS AND POC AND UNABLE TO VERBALIZES UNDERSTANDING. PT HAS CALL LIGHT WITHIN REACH. AWAITING ORDERS AT THIS TIME.
--- NOTE | 2020-09-03 02:55 | NUR ---
DR MACHADO AT FOR PT HISTORY AND ASSESSMENT. REQUESTED ORDERS FOR ANXIOLYTICS. VERBAL ORDERS RECEIVED FROM DR MACHADO AT THIS TIME.
[2020-09-03] MEDS ORDERED: ZIPRASIDONE 20 MG INJ IM ONE ×2 (03:00→03:04)
[2020-09-03] MEDS ORDERED: LORazepam 2 MG/ML, 1ML IM ONE (03:00)
--- NOTE | 2020-09-03 03:03 | NUR ---
LAB AT BS. CT INSTRUCTED TO RETURN AFTER THIS RN CALLS POST MEDICATION OF PT PER DEC.
[2020-09-03] MEDS ORDERED: LORazepam 2 MG/ML, 1ML ONE (03:04)
--- NOTE | 2020-09-03 03:09 | NUR ---
PT MEDICATED PER MAR AT THIS TIME.
[2020-09-03 03:16] LABS: BASOPHILS % (AUTO) 2 % (0-1); EOSINOPHILS % (AUTO) 5 % (1-7); LYMPHOCYTES % (AUTO) 36 % (22-44); MEAN CORPUSCULAR HEMOGLOBIN 26.7 pg (27.5-34.5); MEAN CORPUSCULAR HGB CONC 34.4 g/dL (33.2-36.2); MEAN PLATELET VOLUME 7.6 fL (7.4-10.4); MONOCYTES % (AUTO) 12 % (2-9); NEUTROPHILS % (AUTO) 45 % (42-75); RED BLOOD COUNT 5.45 x10^6/uL (4.38-5.82); RED CELL DISTRIBUTION WIDTH 19.2 % (9.4-14.8)
[2020-09-03 03:29] LABS: ALBUMIN 3.1 g/dL (3.4-5.0); ANION GAP 7 mmol/L (5-15); CALCIUM 8.5 mg/dL (8.5-10.1); CHLORIDE 114 mmol/L (98-107)
[2020-09-03 03:35] LABS: ALANINE AMINOTRANSFERASE 50 U/L (12-78); ALKALINE PHOSPHATASE 96 U/L (45-117); BILIRUBIN,TOTAL 1.9 mg/dL (0.2-1.0); TOTAL PROTEIN 7.2 g/dL (6.4-8.2); TROPONIN I < 0.015 ng/mL (0.000-0.045)
[2020-09-03 03:37] LABS: PLATELET COUNT 55 x10^3/uL (130-400)
[2020-09-03 03:39] LABS: MD SCAN
[2020-09-03 03:46] LABS: SALICYLATE LEVEL 5.3 mg/dL (2.8-20.0)
--- NOTE | 2020-09-03 03:46 | NUR ---
PT ASLEEP IN [facility] AT THIS TIME WITH VS AND CARDIAC MONITORS ATTACHED. VSS. CT CALLED AND REQUESTED TO TAKE PT TO CT AT THIS TIME. MARION FROM CT AT TO TRANSPORT PT TO CT VIA [facility].
--- NOTE | 2020-09-03 04:36 | NUR ---
PT VSS AND UPDATED IN EMR AT THIS TIME. PT ASLEEP IN [facility] WITH LILLY.
[2020-09-03 04:46] LABS: MICROSCOPIC AUTO
[2020-09-03 04:54] LABS: AMPHETAMINE SCREEN, URINE Negative (Negative); BARBITURATE SCREEN, URINE Negative (Negative); BENZODIAZEPINE SCREEN, URINE Negative (Negative); CANNABINOID SCREEN, URINE Positive (Negative); COCAINE SCREEN, URINE Negative (Negative); METHADONE SCREEN, URINE Negative (Negative); OPIATE SCREEN, URINE Negative (Negative)
--- NOTE | 2020-09-03 06:57 | NUR ---
report from patricia pt resting, vss
[2020-09-03 09:36] VITALS: BP 136/81
== END 2020-09-03 09:37 | disposition home or self-care (01) ==
LOC: ED 09:30
DX: R07.89 Other chest pain (principal); R51.9 Headache, unspecified; F12.122 Cannabis abuse with intoxication with perceptual disturbance; F19.14 Other psychoactive substance abuse with psychoactive substance-induced mood disorder
CPT/HCPCS: 36415; 70450; 71045; 80053; 80307; 81001; 82140; 84484; 85025; 93005; 96372; 99285; J2060; J3486

== ENCOUNTER 2020-09-10 13:06 | Emergency (ER) | payer MEDICAID ==
[~2020-09-10] VITALS: Ht 167.6 cm; Wt 79.5 kg
[2020-09-10] MEDS ORDERED: HALOPERIDOL 5 MG/ML IM ONE (13:30)
[2020-09-10 13:46] LABS: ALANINE AMINOTRANSFERASE 103 U/L (12-78); ALBUMIN 2.9 g/dL (3.4-5.0); ANION GAP 9 mmol/L (5-15); CALCIUM 8.1 mg/dL (8.5-10.1); CHLORIDE 107 mmol/L (98-107)
[2020-09-10 13:48] LABS: SALICYLATE LEVEL < 1.7 mg/dL (2.8-20.0)
--- NOTE | 2020-09-10 13:48 | NUR ---
BIB EMS FROM [facility], PT WITH ODD BEHAVIOUR. REQUESTING STAFF TO LOOK HIM IN HIS EYES TO "KEEP ME CALM" THEN PT WITH SUDDEN VERBAL OURBURSTS AND AGGRESSIVE BODY MOVEMENTS. SECURITY AT BEDSIDE, DR CROWELL AT BEDSIDE. PT ORIENTED TO PERSON, PLACE, MONTH. FOLLOWS INSTRUCTIONS. DR CROWELL INFORMED PT THAT HIS VIOLENT OUTBURTS WOULD NOT BE TOLLERATED. THAT WE WOULD TAKE CARE OF HIM BUT WOULD NOT TOLLERATE HIS OUTBURSTS. POC FOR LABS AND CT EXPLAINED TO PT. PT MORE CALM BUT CONTINUES TO INSIST THAT SOMEONE LOOK HIM IN THE EYE'S "ALL THE TIME TO KEEP ME CALM" PIV EST AND LABS DRAWN W/O DIFFICULTY. PT TO CT SCAN WITH RN AND FILM RECORDIST. PT WAS COOPERATIVE AND CT WAS COMPLETED W/O INCIDENT. PT RTD TO ED AND PUT IN ROOM 2 WITH THE ROOM SECURED. SEIZURE PADS PLACED ON RAILS, SITTER AT DOOR WAY. I INTRODUCED THE PT TO THE SITTER AND TO LENORA LYON. PT CURRENTLY RESTING ON [facility].
[2020-09-10 13:49] LABS: ALKALINE PHOSPHATASE 85 U/L (45-117); BILIRUBIN,TOTAL 3.7 mg/dL (0.2-1.0); CREATININE 1.12 mg/dL (0.7-1.3); TOTAL PROTEIN 6.6 g/dL (6.4-8.2)
--- NOTE | 2020-09-10 13:54 | NUR ---
BACKPACK AND 1 PT BELONGINGS BAG PLACED IN LOCKER
[2020-09-10] MEDS ORDERED: HALOPERIDOL 5 MG/ML ONE (13:57)
[2020-09-10 13:59] LABS: BASOPHILS % (AUTO) 2 % (0-1); EOSINOPHILS % (AUTO) 4 % (1-7); LYMPHOCYTES % (AUTO) 26 % (22-44); MEAN CORPUSCULAR HEMOGLOBIN 27.6 pg (27.5-34.5); MEAN CORPUSCULAR HGB CONC 34.7 g/dL (33.2-36.2); MEAN PLATELET VOLUME 8.7 fL (7.4-10.4); MONOCYTES % (AUTO) 12 % (2-9); NEUTROPHILS % (AUTO) 57 % (42-75); PLATELET COUNT 57 x10^3/uL (130-400); RED BLOOD COUNT 4.93 x10^6/uL (4.38-5.82); RED CELL DISTRIBUTION WIDTH 21.3 % (9.4-14.8)
[2020-09-10 14:01] LABS: MD NO
[2020-09-10 15:17] LABS: AMPHETAMINE SCREEN, URINE Negative (Negative); BARBITURATE SCREEN, URINE Negative (Negative); BENZODIAZEPINE SCREEN, URINE Negative (Negative); CANNABINOID SCREEN, URINE Positive (Negative); COCAINE SCREEN, URINE Negative (Negative); METHADONE SCREEN, URINE Negative (Negative); OPIATE SCREEN, URINE Negative (Negative)
[2020-09-10] MEDS ORDERED: POTASSIUM CHLORIDE 20 MEQ TAB.ER.PRT PO ONE ×2 (15:30→18:00)
--- NOTE | 2020-09-10 15:30 | NUR ---
POST VOID APPROX 300ML BLADDER SCAN WITH APPROX 80ML. DR CROWELL AWARE. NO NEW ORDERS AT THIS TIME
--- NOTE | 2020-09-10 15:44 | NUR ---
PT TO MRI VIA [facility]
[2020-09-10] MEDS ORDERED: POTASSIUM CHLORIDE 20 MEQ TAB.ER.PRT ONE (15:46)
[2020-09-10] MEDS ORDERED: GADOTERATE 10 MMOL/20 ML SYR ONE (16:01)
--- NOTE | 2020-09-10 16:41 | NUR ---
pt resting in gurney at this time. arouses to verbal stimuli. monitors in place including card. 5 lead. pt calm and cooperative at this time
--- NOTE | 2020-09-10 17:59 | NUR ---
pt now on hospital bed. seizure pads in place. call light within reach
[2020-09-10] MEDS ORDERED: ONDANSETRON 2MG/ML, 2ML IVPush PRN (18:00)
[2020-09-10 18:05] LABS: INTERNATIONAL NORMALIZED RATIO 1.48 (0.93-1.1); PROTHROMBIN TIME 15.6 Seconds (9.6-11.5)
[2020-09-10] MEDS ORDERED: PANTOPRAZOLE 40MG TABLET ONE (21:22)
[2020-09-10] MEDS: CALCIUM/VITAMIN D3 250-125 TABLET PO SCH (21:50)
[2020-09-10] MEDS: RIFAXIMIN 550 MG TABLET PO SCH (21:51)
[2020-09-10] MEDS: PANTOPRAZOLE 40MG TABLET PO SCH (21:51)
[2020-09-10 23:50] LABS: TROPONIN I 0.025 ng/mL (0.000-0.045)
--- NOTE | 2020-09-11 03:16 | NUR ---
Patient resting in hospital bed at this time. Patient ambulated to the restroom with steady gait. Ate dinner. VSS. Noted to be NSR on the monitor. Call light within reach. Medicated per MAR. Denies any complaints at this time. Bed in low position.
[2020-09-11 05:46] LABS: MEAN CORPUSCULAR HEMOGLOBIN 27.8 pg (27.5-34.5); MEAN CORPUSCULAR HGB CONC 34.6 g/dL (33.2-36.2); MEAN PLATELET VOLUME 8.1 fL (7.4-10.4); RED BLOOD COUNT 4.43 x10^6/uL (4.38-5.82); RED CELL DISTRIBUTION WIDTH 22.2 % (9.4-14.8)
[2020-09-11 05:56] LABS: ALBUMIN 2.4 g/dL (3.4-5.0); ANION GAP 4 mmol/L (5-15); CALCIUM 8.2 mg/dL (8.5-10.1); CHLORIDE 116 mmol/L (98-107)
[2020-09-11 06:09] LABS: ALANINE AMINOTRANSFERASE 85 U/L (12-78); ALKALINE PHOSPHATASE 70 U/L (45-117); BILIRUBIN,TOTAL 2.3 mg/dL (0.2-1.0); CREATININE 0.72 mg/dL (0.7-1.3); TOTAL PROTEIN 5.7 g/dL (6.4-8.2)
[2020-09-11 06:27] LABS: MD YES; PLATELET COUNT 39 x10^3/uL (130-400)
[2020-09-11 06:29] LABS: BASOS#(MANUAL) 0.04 x10^3/uL (0-0.1); BASOS% (MANUAL) 2 % (0-1); EOS#(MANUAL) 0.13 x10^3/uL (0.0-0.4); EOS% (MANUAL) 7 % (1-7); LYMPH#(MANUAL) 0.67 x10^3/uL (1-3.4); LYMPHS% (MANUAL) 35 % (22-44); MONOS#(MANUAL) 0.17 x10^3/uL (0.3-2.7); MONOS% (MANUAL) 9 % (2-9); REACTIVE LYMPHS # (MANUAL) 0.02 x10^3/uL (0-0); REACTIVE LYMPHS % (MANUAL) 1 % (0-0); SEG#(MANUAL) 0.87 x10^3/uL (1.8-6.8); SEGS% (MANUAL) 46 % (42-75)
[2020-09-11 06:32] LABS: <PLATELET ESTIMATE> DECREASED; <PLT MORPHOLOGY> NORMAL PLT MORPH; ANISOCYTOSIS 1+; OVALOCYTES 1+; POLYCHROMASIA 1+
--- NOTE | 2020-09-11 06:41 | NUR ---
Critcal lab values were called, WBC 1.9, PLT 39. Lab was notified to redraw them d/t a large change.
--- NOTE | 2020-09-11 06:50 | NUR ---
REPORT RECEIVED FROM LENORA FISHER
--- NOTE | 2020-09-11 06:56 | NUR ---
PT RESTING WITH EYES CLOSED. EVEN RISE AND FALL OF CHEST NOTED.
[2020-09-11 07:13] LABS: MEAN CORPUSCULAR HEMOGLOBIN 27.5 pg (27.5-34.5); MEAN CORPUSCULAR HGB CONC 34.1 g/dL (33.2-36.2); MEAN PLATELET VOLUME 8.1 fL (7.4-10.4); RED BLOOD COUNT 4.67 x10^6/uL (4.38-5.82)
[2020-09-11 07:22] LABS: ALBUMIN 2.4 g/dL (3.4-5.0); CALCIUM 8.2 mg/dL (8.5-10.1)
[2020-09-11 07:31] LABS: ALANINE AMINOTRANSFERASE 84 U/L (12-78); ALKALINE PHOSPHATASE 69 U/L (45-117); BILIRUBIN,TOTAL 2.6 mg/dL (0.2-1.0); TOTAL PROTEIN 5.8 g/dL (6.4-8.2)
[2020-09-11 07:34] LABS: ANION GAP 4 mmol/L (5-15); CHLORIDE 116 mmol/L (98-107)
[2020-09-11 07:47] LABS: PLATELET COUNT 45 x10^3/uL (130-400)
[2020-09-11] MEDS ORDERED: LACTULOSE 20 GM/30 ML UDC PO SCH (09:00)
--- NOTE | 2020-09-11 09:00 | NUR ---
PHARMACY TUBED FOR 0900 MEDS
--- NOTE | 2020-09-11 09:07 | NUR ---
PT BREAKFAST DELIVERED. PT DENIES ANY PAIN OR PHYICAL COMPLAINTS. VSS. PTS NEEDS MET AT THIS TIME.
[2020-09-11] MEDS ORDERED: PANTOPRAZOLE 40MG TABLET ONE (09:12)
[2020-09-11] MEDS: PANTOPRAZOLE 40MG TABLET PO SCH (09:17)
[2020-09-11 09:41] LABS: MD YES
[2020-09-11 09:44] LABS: BAND#(MANUAL) 0.02 x10^3/uL; BANDS%(MANUAL) 1 % (0-7); BASOS#(MANUAL) 0.06 x10^3/uL (0-0.1); BASOS% (MANUAL) 3 % (0-1); EOS#(MANUAL) 0.19 x10^3/uL (0.0-0.4); EOS% (MANUAL) 9 % (1-7); MONOS#(MANUAL) 0.13 x10^3/uL (0.3-2.7); MONOS% (MANUAL) 6 % (2-9)
[2020-09-11 09:45] LABS: <PLATELET ESTIMATE> DECREASED; <PLT MORPHOLOGY> NORMAL PLT MORPH; ANISOCYTOSIS 1+; LYMPH#(MANUAL) 0.57 x10^3/uL (1-3.4); LYMPHS% (MANUAL) 27 % (22-44); MICROCYTOSIS 1+; OVALOCYTES 1+; POLYCHROMASIA 1+; SEG#(MANUAL) 1.13 x10^3/uL (1.8-6.8); SEGS% (MANUAL) 54 % (42-75)
[2020-09-11] MEDS: RIFAXIMIN 550 MG TABLET PO SCH ×2 (10:20→17:33)
[2020-09-11] MEDS: CALCIUM/VITAMIN D3 250-125 TABLET PO SCH (10:21)
--- NOTE | 2020-09-11 12:08 | NUR ---
PT LUNCH DELIVERED. PT RESTING IN BED WITH EYES CLOSED BUT WOKE TO RN IN ROOM. ALL PT'S NEEDS MET AT THIS TIME.
--- NOTE | 2020-09-11 15:52 | NUR ---
PHARMACY SLIP TUBED
[2020-09-11 17:35] VITALS: BP 116/77
--- NOTE | 2020-09-11 19:01 | NUR ---
BEDSIDE REPORT RECEIVED FROM LENORA CUEVAS. ASSUMED CARE OF PT. PT SITTING IN BED WITH EYES CLOSED. AROUSES TO VERBAL STIMULI. ALERT AND ORIENTED. PT HAS BEEN PROVIDED WITH DISCHARGE PAPERWORK AND A TAXI VOUCHER PER PRETZEL TWISTER.
--- NOTE | 2020-09-11 19:48 | NUR ---
PT AWAKE AND ALERT AND ORIENTED. BELONGINGS REMOVED FROM LOCKER AND GIVEN BACK TO THE PT. PT PROVIDED WITH A TAXI VOUCHER. ALL VITALS STABLE. PT DENIES ANY QUESTIONS OR CONCERNS AT THIS TIME.
--- NOTE | 2020-09-11 19:49 | NUR ---
Patient/Caregiver given discharge instructions and they have confirmed that they understand the instructions. Patient ambulatory with steady gait.
== END 2020-09-11 19:51 | disposition home or self-care (01) ==
LOC: ED 15:48 → UNDOADMOB 15:56 → INTOOBSV 15:56 → EDIP 15:56
DX: I63.9 Cerebral infarction, unspecified (principal); K70.30 Alcoholic cirrhosis of liver without ascites; E87.6 Hypokalemia; Z72.89 Other problems related to lifestyle; R94.31 Abnormal electrocardiogram [ECG] [EKG]; F17.210 Nicotine dependence, cigarettes, uncomplicated; Z90.89 Acquired absence of other organs
CPT/HCPCS: 36415; 70450; 70553; 80053; 80299; 80307; 80320; 80329; 82140; 82962; 83036; 83735; 84100; 84443; 84484; 85025; 85610; 86592; 93005; 93306; 96374; 99291; A9575; J1630; 96372; G0480

== ENCOUNTER 2020-12-01 10:57 | Emergency (ER) | payer MEDICAID ==
[~2020-12-01] VITALS: Ht 175.3 cm; Wt 98.2 kg
--- NOTE | 2020-12-01 11:57 | NUR ---
PT TO CT
[2020-12-01 11:58] LABS: BASOPHILS % (AUTO) 1 % (0-1); EOSINOPHILS % (AUTO) 3 % (1-7); LYMPHOCYTES % (AUTO) 22 % (22-44); MEAN CORPUSCULAR HEMOGLOBIN 30.6 pg (27.5-34.5); MEAN CORPUSCULAR HGB CONC 35.2 g/dL (33.2-36.2); MEAN PLATELET VOLUME 7.7 fL (7.4-10.4); MONOCYTES % (AUTO) 9 % (2-9); NEUTROPHILS % (AUTO) 64 % (42-75); PLATELET COUNT 101 x10^3/uL (130-400); RED BLOOD COUNT 4.77 x10^6/uL (4.38-5.82); RED CELL DISTRIBUTION WIDTH 17.9 % (9.4-14.8)
[2020-12-01 12:01] LABS: MD NO
[2020-12-01 12:09] LABS: ALANINE AMINOTRANSFERASE 47 U/L (12-78); ALBUMIN 2.7 g/dL (3.4-5.0); ANION GAP 9 mmol/L (5-15); CALCIUM 8.9 mg/dL (8.5-10.1); CHLORIDE 110 mmol/L (98-107); CREATININE 1.21 mg/dL (0.7-1.3)
--- NOTE | 2020-12-01 12:10 | NUR ---
PT BACK FROM CT. MONITOR IN PLACE.
[2020-12-01 12:13] LABS: ALKALINE PHOSPHATASE 92 U/L (45-117); BILIRUBIN,TOTAL 1.8 mg/dL (0.2-1.0); TOTAL PROTEIN 6.7 g/dL (6.4-8.2); TROPONIN I < 0.015 ng/mL (0.000-0.045)
[2020-12-01] MEDS ORDERED: ONDANSETRON 2MG/ML, 2ML IVPush ONE (12:30)
[2020-12-01] MEDS ORDERED: HYDROmorphone 2 MG/ML, 1ML IVPush PRN (12:30)
[2020-12-01 12:35] LABS: MICROSCOPIC NOT IND
[2020-12-01] MEDS ORDERED: ONDANSETRON 2MG/ML, 2ML ONE (13:10)
[2020-12-01] MEDS ORDERED: HYDROmorphone 1 MG/ML, 1ML INJ ONE (13:10)
--- NOTE | 2020-12-01 13:20 | NUR ---
PT MEDICATED PER DEC. WILL REASSESS IN 30 MIN.
[2020-12-01 15:00] VITALS: BP 115/71
== END 2020-12-01 15:02 | disposition home or self-care (01) ==
LOC: ED 11:30
DX: R51.9 Headache, unspecified (principal); R42 Dizziness and giddiness; R53.1 Weakness; F17.200 Nicotine dependence, unspecified, uncomplicated; Z86.73 Personal history of transient ischemic attack (TIA), and cerebral infarction without residual deficits; Z90.49 Acquired absence of other specified parts of digestive tract
CPT/HCPCS: 36415; 70450; 80053; 81003; 84484; 85025; 87040; 93005; 96374; 96375; 99285; J1170; J2405